=== PATIENT | male | born 1975 | race Caucasian/White ===

== ENCOUNTER 2017-03-20 12:39 | Emergency (ER) | payer MEDICARE, OTHER ==
[~2017-03-20] VITALS: Ht 177.8 cm; Wt 100.0 kg
[~2017-03-20 12:39] MED LIST: NOCURR
[2017-03-20] MEDS ORDERED: FLUORESCEIN SODIUM 1 MG STRIP ONE (13:11)
[2017-03-20] MEDS ORDERED: PROPARACAINE HCL 0.5% 15 ML OPHTHALMIC SOLUTION OD ONE (13:15)
[2017-03-20] MEDS ORDERED: IBUPROFEN 800 MG TABLET PO ONE (13:45)
[2017-03-20 14:19] VITALS: BP 132/78
== END 2017-03-20 14:22 | disposition home or self-care (01) ==
LOC: EMS 12:41
DX: H57.8 Other specified disorders of eye and adnexa (principal)
CPT/HCPCS: 99283